=== PATIENT | female | born 1950 | race Caucasian/White ===

== ENCOUNTER 2018-05-28 11:09 | Observation (INO) | payer MEDICAID ==
[2018-05-28 14:30] LABS: ADD MAN DIFF? NO
[2018-05-28 14:32] LABS: WHITE BLOOD COUNT 5.4 10^3/ul (4.8-10.8)
[2018-05-28 14:32] LABS: BASOPHIL # 0.1 10^3/ul (0.0-0.1); BASOPHILS % 0.9 % (0.0-2.0); EOSINOPHILS # 0.2 10^3/ul (0.0-0.5); EOSINOPHILS % 3.2 % (0.0-7.0); HEMATOCRIT 40.6 % (37.0-47.0); HEMOGLOBIN 12.9 g/dl (12.0-16.0); LYMPHOCYTES # 1.1 10^3/ul (0.8-2.9); LYMPHOCYTES % 20.5 % (15.0-51.0); MEAN CORPUSCULAR HEMOGLOBIN 31.2 pg (29.0-33.0); MEAN CORPUSCULAR HGB CONC 31.8 g/dl (32.0-37.0); MEAN CORPUSCULAR VOLUME 98.3 fl (82.0-101.0); MEAN PLATELET VOLUME 11.2 fl (7.4-10.4); MONOCYTE # 0.5 10^3/ul (0.3-0.9); MONOCYTES % 8.6 % (0.0-11.0); NEUTROPHIL # 3.6 10^3/ul (1.6-7.5); NEUTROPHILS % 66.4 % (39.0-77.0); PLATELET COUNT 202 10^3/UL (140-415); RED BLOOD COUNT 4.13 10^6/ul (4.20-5.40)
[2018-05-28 14:50] LABS: PROTIME 29.4 Sec (11.9-14.9); PT RATIO 2.3
[2018-05-28 14:51] LABS: PARTIAL THROMBOPLASTIN TIME 36.5 Sec (23.0-35.0)
[2018-05-28 14:55] LABS: ANION GAP 10 (5-13); BLOOD UREA NITROGEN 14 mg/dl (7-20); CALCIUM 9.1 mg/dl (8.4-10.2); CARBON DIOXIDE 24 mmol/L (21-31); CHLORIDE 108 mmol/L (97-110); CREATININE 0.53 mg/dl (0.44-1.00); Estimated GFR > 60 mL/min (>60); GLUCOSE 87 mg/dl (70-220); POTASSIUM 4.4 mmol/L (3.5-5.1); SODIUM 142 mmol/L (135-144)
[2018-05-28] MEDS ORDERED: HYDROCODONE/APAP (5/325) TAB PO (16:00)
[2018-05-28] MEDS ORDERED: DOCUSATE SODIUM 100 MG CAP PO (16:00)
[2018-05-28] MEDS ORDERED: morphine 2 MG INJ IV (16:00)
[2018-05-28] MEDS ORDERED: ACETAMINOPHEN 325 MG TAB PO (16:00)
[2018-05-28] MEDS ORDERED: ONDANSETRON 4 MG INJ IV (16:00)
[2018-05-28] MEDS ORDERED: MAGNESIUM HYDROXIDE 30ML CUP PO (16:00)
[2018-05-28] MEDS ORDERED: ZOLPIDEM 5 MG TAB PO (16:00)
[2018-05-28] MEDS ORDERED: NACL 0.9% 3 ML SYG IV (16:00)
[2018-05-28] MEDS: METOPROLOL 100 MG TAB PO (21:00)
[2018-05-28] MEDS: ATORVASTATIN 80 MG TAB PO (21:34)
[2018-05-28] MEDS: LISINOPRIL 20 MG TAB PO (21:35)
[2018-05-29] MEDS: PANTOPRAZOLE (EC) 40 MG TAB PO (05:14)
[2018-05-29 05:46] LABS: ADD MAN DIFF? NO
[2018-05-29 05:49] LABS: WHITE BLOOD COUNT 4.3 10^3/ul (4.8-10.8)
[2018-05-29 05:49] LABS: BASOPHIL # 0.1 10^3/ul (0.0-0.1); BASOPHILS % 1.4 % (0.0-2.0); EOSINOPHILS # 0.2 10^3/ul (0.0-0.5); EOSINOPHILS % 4.1 % (0.0-7.0); HEMATOCRIT 36.3 % (37.0-47.0); HEMOGLOBIN 11.7 g/dl (12.0-16.0); LYMPHOCYTES # 0.9 10^3/ul (0.8-2.9); LYMPHOCYTES % 19.8 % (15.0-51.0); MEAN CORPUSCULAR HEMOGLOBIN 31.1 pg (29.0-33.0); MEAN CORPUSCULAR HGB CONC 32.2 g/dl (32.0-37.0); MEAN CORPUSCULAR VOLUME 96.5 fl (82.0-101.0); MEAN PLATELET VOLUME 11.5 fl (7.4-10.4); MONOCYTE # 0.4 10^3/ul (0.3-0.9); MONOCYTES % 9.7 % (0.0-11.0); NEUTROPHIL # 2.8 10^3/ul (1.6-7.5); NEUTROPHILS % 64.8 % (39.0-77.0); PLATELET COUNT 166 10^3/UL (140-415); RED BLOOD COUNT 3.76 10^6/ul (4.20-5.40); RED CELL DISTRIBUTION WIDTH 15.8 % (11.5-14.5)
[2018-05-29 06:13] LABS: ANION GAP 8 (5-13); BLOOD UREA NITROGEN 13 mg/dl (7-20); CALCIUM 8.9 mg/dl (8.4-10.2); CARBON DIOXIDE 27 mmol/L (21-31); CHLORIDE 107 mmol/L (97-110); CHOL/HDL RATIO 1.8 RATIO; CHOLESTEROL 99 mg/dl (100-200); CREATININE 0.62 mg/dl (0.44-1.00); Estimated GFR > 60 mL/min (>60); GLUCOSE 101 mg/dl (70-220); HDL CHOLESTEROL 53 mg/dl (35-98); LDL CHOLESTEROL,CALCULATED 37 mg/dl; MAGNESIUM 1.7 mg/dl (1.7-2.5); PHOSPHORUS 4.3 mg/dl (2.5-4.9); SODIUM 142 mmol/L (135-144); TRIGLYCERIDES 47 mg/dl (0-149)
[2018-05-29 06:16] LABS: HEMOGLOBIN A1C 5.9 % (0-5.9)
[2018-05-29] MEDS: LEVOTHYROXINE 100 MCG TAB PO (06:30)
[2018-05-29] MEDS: FERROUS SULFATE (EC) 325 MG TAB PO (08:42)
[2018-05-29] MEDS: metFORMIN (XR) 500 MG TAB PO (08:43)
[2018-05-29] MEDS: METOPROLOL 100 MG TAB PO (08:43)
[2018-05-29] MEDS: LISINOPRIL 20 MG TAB PO (08:43)
[2018-05-29] MEDS: LORATADINE 10 MG TAB PO (08:43)
[2018-05-29] MEDS: INFLUENZA VIRUS VACCINE 0.5 ML (DISPENSING) IM* (14:58)
[2018-05-29] MEDS: WARFARIN 5 MG TAB PO (16:58)
== END 2018-05-29 18:30 | disposition home or self-care (01) ==
LOC: E/R 11:09 → 6WM 15:56
DX: R42 Dizziness and giddiness (principal); I10 Essential (primary) hypertension; E78.5 Hyperlipidemia, unspecified; E03.9 Hypothyroidism, unspecified; E11.9 Type 2 diabetes mellitus without complications; I48.91 Unspecified atrial fibrillation; Z79.01 Long term (current) use of anticoagulants; Z79.84 Long term (current) use of oral hypoglycemic drugs; Z86.73 Personal history of transient ischemic attack (TIA), and cerebral infarction without residual deficits; Z23 Encounter for immunization
CPT/HCPCS: 36415; 70450; 70552; 80048; 80061; 83036; 83735; 84100; 85025; 85610; 85730; 90686; 93005; 93306; 93880; 97161; 99285-25; G0378

== ENCOUNTER 2018-10-20 21:26 | Inpatient (IN) | payer MEDICAID ==
[2018-10-20 21:57] LABS: ADD MAN DIFF? NO
[2018-10-20 21:58] LABS: BASOPHILS % 1.1 % (0.0-2.0); EOSINOPHILS % 3.4 % (0.0-7.0); HEMATOCRIT 37.6 % (37.0-47.0); HEMOGLOBIN 12.2 g/dl (12.0-16.0); LYMPHOCYTES % 19.6 % (15.0-51.0); MEAN CORPUSCULAR HEMOGLOBIN 32.7 pg (29.0-33.0); MEAN CORPUSCULAR HGB CONC 32.4 g/dl (32.0-37.0); MEAN CORPUSCULAR VOLUME 100.8 fl (82.0-101.0); MEAN PLATELET VOLUME 10.7 fl (7.4-10.4); MONOCYTES % 7.2 % (0.0-11.0); NEUTROPHILS % 68.3 % (39.0-77.0); PLATELET COUNT 170 10^3/UL (140-415); RED BLOOD COUNT 3.73 10^6/ul (4.20-5.40); RED CELL DISTRIBUTION WIDTH 13.7 % (11.5-14.5)
[2018-10-20 21:58] LABS: WHITE BLOOD COUNT 5.6 10^3/ul (4.8-10.8)
[2018-10-20 21:59] LABS: BASOPHIL # 0.1 10^3/ul (0.0-0.1); EOSINOPHILS # 0.2 10^3/ul (0.0-0.5); LYMPHOCYTES # 1.1 10^3/ul (0.8-2.9); MONOCYTE # 0.4 10^3/ul (0.3-0.9); NEUTROPHIL # 3.8 10^3/ul (1.6-7.5)
[2018-10-20 22:15] LABS: ANION GAP 10 (5-13); BLOOD UREA NITROGEN 11 mg/dl (7-20); CALCIUM 9.7 mg/dl (8.4-10.2); CARBON DIOXIDE 26 mmol/L (21-31); CHLORIDE 103 mmol/L (97-110); CHOL/HDL RATIO 1.9 RATIO; CHOLESTEROL 113 mg/dl (100-200); CREATININE 0.56 mg/dl (0.44-1.00); Estimated GFR > 60 mL/min (>60); GLUCOSE 126 mg/dl (70-220); HDL CHOLESTEROL 58 mg/dl (35-98); LDL CHOLESTEROL,CALCULATED 46 mg/dl; POTASSIUM 3.5 mmol/L (3.5-5.1); SODIUM 139 mmol/L (135-144); TRIGLYCERIDES 45 mg/dl (0-149)
[2018-10-20 22:18] LABS: INR 1.42; PROTIME 17.5 Sec (11.9-14.9); PT RATIO 1.4
[2018-10-20 22:19] LABS: HEMOGLOBIN A1C 5.8 % (0-5.9)
[2018-10-20 22:19] LABS: PARTIAL THROMBOPLASTIN TIME 34.9 Sec (23.0-35.0)
[2018-10-20] MEDS: IOHEXOL 100 ML (22:19)
[2018-10-20] MEDS: SOD CHLORIDE 0.9% 100 ML (22:19)
[2018-10-20] MEDS: LABETALOL HCL 20MG INJ IV (22:20)
[2018-10-20 22:26] LABS: TROPONIN-I < 0.012 ng/ml (0.000-0.120)
[2018-10-20 23:12] LABS: ADD UMIC YES; UR ASCORBIC ACID NEGATIVE (NEGATIVE); UR BILIRUBIN (Dip) NEGATIVE (NEGATIVE); UR BLOOD (Dip) NEGATIVE (NEGATIVE); UR CLARITY CLEAR (CLEAR); UR COLOR STRAW (YELLOW); UR GLUCOSE (Dip) NEGATIVE (NEGATIVE); UR KETONES (Dip) NEGATIVE (NEGATIVE); UR LEUKOCYTE ESTERASE (Dip) NEGATIVE Leu/ul (NEGATIVE); UR NITRITE (Dip) NEGATIVE (NEGATIVE); UR RBC 0 /HPF (0-5); UR SPECIFIC GRAVITY (Dip) 1.011 (1.003-1.030); UR TOTAL PROTEIN (Dip) 1+ mg/dl (NEGATIVE); UR UROBILINOGEN (Dip) NEGATIVE (NEGATIVE); UR WBC 1 /HPF (0-5)
[2018-10-20 23:25] LABS: AMPHETAMINE/METHAMPHETAMINE Negative (NEGATIVE); BARBITURATES Negative (NEGATIVE); BENZODIAZEPINES Negative (NEGATIVE); CANNABINOIDS Negative (NEGATIVE); OPIATES Negative (NEGATIVE)
[2018-10-20 23:37] LABS: COCAINE Negative (NEGATIVE)
[2018-10-21] MEDS: ASPIRIN 81 MG TAB PO ×2 (01:23→09:24)
[2018-10-21] MEDS ORDERED: ACETAMINOPHEN 325 MG TAB PO (07:00)
[2018-10-21] MEDS ORDERED: NACL 0.9% 3 ML SYG IV (07:00)
[2018-10-21] MEDS ORDERED: ONDANSETRON 4 MG INJ IV (07:00)
[2018-10-21] MEDS ORDERED: GLUCAGON 1 MG INJ IM (07:00)
[2018-10-21] MEDS ORDERED: GLUCOSE GEL 15 GRAM TUBE BUCCAL (07:00)
[2018-10-21] MEDS ORDERED: DEXTROSE 50% 50 ML SYRINGE IV ×2 (07:00)
[2018-10-21] MEDS ORDERED: GLUCOSE GEL 15 GRAM TUBE PO ×2 (07:00)
[2018-10-21 08:25] LABS: ADD MAN DIFF? NO
[2018-10-21 08:30] LABS: WHITE BLOOD COUNT 4.1 10^3/ul (4.8-10.8)
[2018-10-21 08:30] LABS: BASOPHIL # 0.1 10^3/ul (0.0-0.1); BASOPHILS % 1.2 % (0.0-2.0); EOSINOPHILS # 0.1 10^3/ul (0.0-0.5); EOSINOPHILS % 3.2 % (0.0-7.0); HEMATOCRIT 33.9 % (37.0-47.0); HEMOGLOBIN 11.2 g/dl (12.0-16.0); LYMPHOCYTES # 0.7 10^3/ul (0.8-2.9); LYMPHOCYTES % 17.3 % (15.0-51.0); MEAN CORPUSCULAR HEMOGLOBIN 32.7 pg (29.0-33.0); MEAN CORPUSCULAR VOLUME 98.8 fl (82.0-101.0); MEAN PLATELET VOLUME 11.4 fl (7.4-10.4); MONOCYTE # 0.4 10^3/ul (0.3-0.9); MONOCYTES % 8.5 % (0.0-11.0); NEUTROPHIL # 2.9 10^3/ul (1.6-7.5); NEUTROPHILS % 69.6 % (39.0-77.0); PLATELET COUNT 149 10^3/UL (140-415); RED BLOOD COUNT 3.43 10^6/ul (4.20-5.40); RED CELL DISTRIBUTION WIDTH 13.9 % (11.5-14.5)
[2018-10-21 08:46] LABS: ALANINE AMINOTRANSFERASE 55 IU/L (13-69); ALBUMIN 3.4 g/dl (3.3-4.9); ALBUMIN/GLOBULIN RATIO 1.36; ALKALINE PHOSPHATASE 88 IU/L (42-121); ANION GAP 8 (5-13); ASPARTATE AMINO TRANSFERASE 41 IU/L (15-46); BLOOD UREA NITROGEN 9 mg/dl (7-20); CALCIUM 9.2 mg/dl (8.4-10.2); CARBON DIOXIDE 28 mmol/L (21-31); CHLORIDE 105 mmol/L (97-110); CHOLESTEROL 88 mg/dl (100-200); CREATININE 0.52 mg/dl (0.44-1.00); Estimated GFR > 60 mL/min (>60); GLUCOSE 88 mg/dl (70-220); HDL CHOLESTEROL 49 mg/dl (35-98); MAGNESIUM 1.7 mg/dl (1.7-2.5); POTASSIUM 3.6 mmol/L (3.5-5.1); SODIUM 141 mmol/L (135-144); TOTAL PROTEIN 5.9 g/dl (6.1-8.1); TRIGLYCERIDES 44 mg/dl (0-149)
[2018-10-21 08:47] LABS: CHOL/HDL RATIO 1.7 RATIO; CREATINE KINASE 46 IU/L (23-200); LDL CHOLESTEROL,CALCULATED 30 mg/dl
[2018-10-21 08:58] LABS: CK INDEX 1.3; CK-MB 0.59 ng/ml (0.0-2.4); TROPONIN-I < 0.012 ng/ml (0.000-0.120)
[2018-10-21] MEDS: LISINOPRIL 20 MG TAB PO ×2 (09:23→20:31)
[2018-10-21] MEDS: METOPROLOL 100 MG TAB PO ×2 (09:23→20:31)
[2018-10-21] MEDS: FERROUS SULFATE (EC) 325 MG TAB PO (09:23)
[2018-10-21] MEDS: metFORMIN (XR) 500 MG TAB PO (09:23)
[2018-10-21] MEDS: LEVOTHYROXINE 100 MCG TAB PO (09:24)
[2018-10-21] MEDS: LORATADINE 10 MG TAB PO (09:24)
[2018-10-21] MEDS: HEPARIN 5,000 UNIT/1 ML VIAL SC (09:25)
[2018-10-21 09:37] LABS: HEMOGLOBIN A1C 5.9 % (0-5.9)
[2018-10-21] MEDS: PANTOPRAZOLE (EC) 40 MG TAB PO (10:28)
[2018-10-21 13:36] LABS: CREATINE KINASE 43 IU/L (23-200)
[2018-10-21 13:49] LABS: TROPONIN-I < 0.012 ng/ml (0.000-0.120)
[2018-10-21 14:03] LABS: CK-MB 0.44 ng/ml (0.0-2.4)
[2018-10-21] MEDS ORDERED: WARFARIN 5 MG TAB PO (17:00)
[2018-10-21] MEDS: RIVAROXABAN 20 MG TABLET PO (17:44)
[2018-10-21] MEDS: ATORVASTATIN 80 MG TAB PO (20:30)
[2018-10-22] MEDS ORDERED: hydrALAzine 20 MG INJ (03:50)
[2018-10-22] MEDS: hydrALAzine 20 MG INJ IV (03:58)
[2018-10-22] MEDS ORDERED: hydrALAzine 20 MG INJ IV (04:00)
[2018-10-22] MEDS: PANTOPRAZOLE (EC) 40 MG TAB PO (05:43)
[2018-10-22] MEDS: LEVOTHYROXINE 100 MCG TAB PO (05:45)
[2018-10-22 06:08] LABS: ADD MAN DIFF? NO
[2018-10-22 06:17] LABS: BASOPHIL # 0.1 10^3/ul (0.0-0.1); EOSINOPHILS # 0.2 10^3/ul (0.0-0.5); EOSINOPHILS % 3.2 % (0.0-7.0); HEMATOCRIT 36.2 % (37.0-47.0); HEMOGLOBIN 11.9 g/dl (12.0-16.0); LYMPHOCYTES # 0.7 10^3/ul (0.8-2.9); LYMPHOCYTES % 13.1 % (15.0-51.0); MEAN CORPUSCULAR HEMOGLOBIN 32.7 pg (29.0-33.0); MEAN CORPUSCULAR HGB CONC 32.9 g/dl (32.0-37.0); MEAN CORPUSCULAR VOLUME 99.5 fl (82.0-101.0); MEAN PLATELET VOLUME 10.9 fl (7.4-10.4); MONOCYTE # 0.4 10^3/ul (0.3-0.9); MONOCYTES % 7.6 % (0.0-11.0); NEUTROPHIL # 3.9 10^3/ul (1.6-7.5); NEUTROPHILS % 74.9 % (39.0-77.0); PLATELET COUNT 154 10^3/UL (140-415); RED BLOOD COUNT 3.64 10^6/ul (4.20-5.40); RED CELL DISTRIBUTION WIDTH 13.4 % (11.5-14.5)
[2018-10-22 06:17] LABS: WHITE BLOOD COUNT 5.3 10^3/ul (4.8-10.8)
[2018-10-22 06:35] LABS: INR 2.28; PROTIME 25.2 Sec (11.9-14.9)
[2018-10-22 06:38] LABS: ANION GAP 8 (5-13); BLOOD UREA NITROGEN 9 mg/dl (7-20); CALCIUM 9.2 mg/dl (8.4-10.2); CARBON DIOXIDE 30 mmol/L (21-31); CHLORIDE 103 mmol/L (97-110); Estimated GFR > 60 mL/min (>60); GLUCOSE 97 mg/dl (70-220); MAGNESIUM 1.7 mg/dl (1.7-2.5); POTASSIUM 3.6 mmol/L (3.5-5.1); SODIUM 141 mmol/L (135-144)
[2018-10-22] MEDS: metFORMIN (XR) 500 MG TAB PO (08:22)
[2018-10-22] MEDS: LORATADINE 10 MG TAB PO (08:22)
[2018-10-22] MEDS: LISINOPRIL 10 MG TAB PO (08:23)
[2018-10-22] MEDS: FERROUS SULFATE (EC) 325 MG TAB PO (08:23)
[2018-10-22] MEDS: METOPROLOL 100 MG TAB PO (08:23)
[2018-10-22] MEDS: LISINOPRIL 20 MG TAB PO (08:23)
[2018-10-22] MEDS: RIVAROXABAN 20 MG TABLET PO (17:12)
[2018-10-22] MEDS: ATORVASTATIN 80 MG TAB PO (21:56)
[2018-10-22] MEDS: AMLODIPINE 5 MG TAB PO (21:56)
[2018-10-22] MEDS ORDERED: LORAZEPAM 0.5 MG TAB PO (22:00)
[2018-10-23] MEDS: PANTOPRAZOLE (EC) 40 MG TAB PO (06:44)
[2018-10-23] MEDS: LEVOTHYROXINE 100 MCG TAB PO (06:44)
[2018-10-23] MEDS: FERROUS SULFATE (EC) 325 MG TAB PO (08:41)
[2018-10-23] MEDS: LISINOPRIL 20 MG TAB PO (08:42)
[2018-10-23] MEDS: metFORMIN (XR) 500 MG TAB PO (08:45)
[2018-10-23] MEDS: LORATADINE 10 MG TAB PO (08:45)
[2018-10-23] MEDS: RIVAROXABAN 20 MG TABLET PO (08:45)
[2018-10-23] MEDS: AMLODIPINE 5 MG TAB PO (08:46)
[2018-10-23] MEDS ORDERED: AMLODIPINE 5 MG TAB PO (09:00)
[2018-10-23] MEDS: ATORVASTATIN 80 MG TAB PO (20:08)
[2018-10-24] MEDS: PANTOPRAZOLE (EC) 40 MG TAB PO (05:59)
[2018-10-24] MEDS: LEVOTHYROXINE 100 MCG TAB PO (08:25)
[2018-10-24] MEDS: LISINOPRIL 20 MG TAB PO (08:25)
[2018-10-24] MEDS: metFORMIN (XR) 500 MG TAB PO (08:26)
[2018-10-24] MEDS: AMLODIPINE 5 MG TAB PO (08:26)
[2018-10-24] MEDS: LORATADINE 10 MG TAB PO (08:26)
[2018-10-24] MEDS: RIVAROXABAN 20 MG TABLET PO (08:26)
[2018-10-24] MEDS: FERROUS SULFATE (EC) 325 MG TAB PO (08:27)
== END 2018-10-24 14:55 | disposition home health service (06) | DRG 65 ==
LOC: PP2 10-23 18:29 → 6WM 23:17 → E/R 21:26 → PP2 10-23 19:04
DX: I63.9 Cerebral infarction, unspecified (principal); I16.1 Hypertensive emergency; I69.954 Hemiplegia and hemiparesis following unspecified cerebrovascular disease affecting left non-dominant side; I69.920 Aphasia following unspecified cerebrovascular disease; E03.9 Hypothyroidism, unspecified; E11.9 Type 2 diabetes mellitus without complications; I10 Essential (primary) hypertension; E78.5 Hyperlipidemia, unspecified; R29.810 Facial weakness; R47.1 Dysarthria and anarthria; Z79.4 Long term (current) use of insulin; Z79.01 Long term (current) use of anticoagulants
CPT/HCPCS: 36415; 70450; 70496; 70498; 70551; 71045; 80048; 80053; 80061; 80307; 81001; 82550; 82553; 82962; 83036; 83735; 84100; 84443; 84484; 85025; 85610; 85730; 92610; 93005; 93306; 96374; 97110; 97116; 97162; 99285-25